=== PATIENT | female | born 1975 | race Caucasian/White ===

== ENCOUNTER 2017-02-28 10:41 | Emergency (ER) | payer OTHER ==
[2017-02-28 10:51] VITALS: BP 132/89; O2SAT 98
[2017-02-28] MEDS ORDERED: Adacel Vial IM ONE ×2 (11:14→11:22)
--- NOTE | 2017-02-28 11:20 | ERPHSYRPT ---
- History of Present Illness Time Seen by Provider: 02/28/17 10:56 Source: patient, family Patient Subjective Stated Complaint: lt face abscess for 2 days Triage Nursing Assessment: had small abscess on lt eyebrow drain 2 days ago but has had lt forehead abscess not draining for 2 days casuing lt facial swelling and pain. denies fever. redness and scabbed area noted to t forehead Physician History: CC: scab on forehead hx: 41 y/o patient of Dr Hugo has third skin infection. She has scabbed red area on left forehead. She tried to pop it but no drng. No fever or chills. Some swelling. This is third infx. Not better with prid at home. Timing/Duration: day(s) (2) Severity: mild Allergies/Adverse Reactions: No Known Drug Allergies Allergy (Unverified 02/28/17 10:51) Home Medications: Tramadol HCl 50 mg [Ultram 50 mg] 50 mg PO QIDPRN PRN 02/28/17 [History] Hx Tetanus, Diphtheria Vaccination/Date Given: Yes Hx Influenza Vaccination/Date Given: No Hx Pneumococcal Vaccination/Date Given: No Immunizations Up to Date: Yes - Review of Systems Constitutional: No Fever, No Chills Eyes: No Vision Changes, No Double Vision Ears, Nose, & Throat: No Nose Congestion Abdominal/Gastrointestinal: No Nausea, No Vomiting Skin: Skin Lesions Neurological: No Focal Weakness, No Headache, No Parasthesia - Past Medical History Pertinent Past Medical History: Yes Musculoskeletal History: Arthritis - Past Surgical History Past Surgical History: Yes Gastrointestinal: Hernia Repair Female Surgical History: Tubal Ligation Other Surgical History: cyst foot - Social History Smoking Status: Current every day smoker Exposure to second hand smoke: No Drug Use: marijuana Patient Lives Alone: No - Female History Hx Last Menstrual Period: current - Nursing Vital Signs Nursing Vital Signs: Initial Vital Signs Temperature 98.0 F 02/28/17 10:48 Pulse Rate 72 02/28/17 10:48 Respiratory Rate 18 02/28/17 10:48 Blood Pressure 132/89 02/28/17 10:48 O2 Sat by Pulse Oximetry 98 02/28/17 10:48 Pain Scale Pain Intensity 6 - Physical Exam General Appearance: alert Eye Exam: PERRL/EOMI Ears, Nose, Throat Exam: moist mucous membranes Neck Exam: normal inspection, non-tender, supple Respiratory Exam: lungs clear Cardiovascular Exam: regular rate/rhythm Neurologic Exam: alert, oriented x 3, cooperative, nml station & gait, sensation nml, No motor deficits Skin Exam: warm, dry, other (scab left forehead with some redness, no fluctuance. No facial cellulitis. EOMI.) SpO2: 98 Oxygen Delivery: Room Air - Course Nursing assessment & vital signs reviewed: Yes - Progress Progress Note: 02/28/17 11:21 Likely MRSA. Instr given. No abscess to drain at present. Counseled pt/family regarding: diagnosis, need for follow-up - Departure Time of Disposition: 11:22 Departure Disposition: Home Clinical Impression: left forehead abscess Condition: Stable Critical Care Time: No Referrals: CARLOS HUGO [Primary Care Provider] - Instructions: Methicillin-Resistant Staph Infection (MRSA), Cellulitis -- Adult Additional Instructions: Warm compress three times a day. RX keflex. Rx bactrim. Rx bactroban ointment. Return for double vision, fever, worsening. Follow up with Dr Hugo Thursday if not better. Prescriptions: Cephalexin Mh 500 mg [Keflex 500 mg] 1 cap PO QID #40 capsule Mupirocin [Bactroban OINTMENT] 22 gm TP BID #1 tube Smz/Tmp Ds Tablet [Bactrim Ds Tablet] 1 udtab PO BID #20 tablet
[2017-02-28 11:49] VITALS: PULSE 74
== END 2017-02-28 11:50 | disposition home or self-care (01) ==
LOC: ED 10:41
DX: L02.01 Cutaneous abscess of face (principal)
CPT/HCPCS: 90471; 90715; 99283

== ENCOUNTER 2022-08-15 20:32 | Emergency (ER) | payer OTHER ==
--- NOTE | 2022-08-15 20:40 | ERPHSYRPT ---
- History of Present Illness Time Seen by Provider: 08/15/22 20:40 Source: patient Exam Limitations: no limitations Physician History: 47-year-old female presents to the ED with new onset chest tightness, jaw tightness, palpitations, dizziness and shortness of breath for the last 2-1/2 hours. She reports that this started after smoking new marijuana. On evaluation patient reports that she is starting to feel much better. She still has some left-sided chest tightness that radiates to her left shoulder and jaw. She denies any cough or wheeze. Patient has not been recently sick or been around anyone's been sick. She does have a history of asthma for which she uses an albuterol inhaler as needed. Patient reports last time she had use inhaler was approximately 4 days ago. She has a past medical history of fibromyalgia and anxiety and only takes [place], pravastatin and her albuterol inhaler. Denies any allergies. She smokes cigarettes daily and marijuana occasionally, but denies alcohol or illicit drug usage. Patient denies any history of cardiac issues in the past. Timing/Duration: hour(s) (2.05) Activities at Onset: rest, other (after smoking new marijuana) Severity of Dyspnea-Max: severe Severity of Dyspnea-Current: mild Possible Cause: smoke exposure Associated Symptoms: anxiety, chest pain/discomfort, lightheadedness, dizziness, heaviness, heart racing, tightness, No edema, No fever, No wheezing, No productive cough Allergies/Adverse Reactions: No Known Drug Allergies Allergy (Verified 08/15/22 20:34) Home Medications: Albuterol Sulfate [Proair Respiclick] 2 puffs IH DAILY PRN 08/15/22 [History] Hydrocodone/Acetaminophen [Hydrocodone-Acetamin 7.5-325] 1 tab PO TID 08/15/22 [History] Pravastatin Sodium 40 mg PO DAILY 08/15/22 [History] Hx Tetanus, Diphtheria Vaccination/Date Given: Yes Hx Influenza Vaccination/Date Given: No Hx Pneumococcal Vaccination/Date Given: No - Review of Systems Constitutional: No Symptoms Eyes: No Symptoms Ears, Nose, & Throat: No Symptoms Respiratory: Dyspnea, No Cough, No Wheezing Cardiac: Chest Pain, Palpitations, No Edema, No Syncope Abdominal/Gastrointestinal: Abdominal Pain (epigastric), No Nausea, No Vomiting, No Diarrhea, No Hematemesis, No Dysphagia Genitourinary Symptoms: No Symptoms Musculoskeletal: No Symptoms Skin: No Symptoms Neurological: Dizziness Psychological: Drug Abuse, Anxiety Endocrine: No Symptoms Hematologic/Lymphatic: No Symptoms Immunological/Allergic: No Symptoms All Other Systems: Reviewed and Negative - Past Medical History Pertinent Past Medical History: Yes Musculoskeletal History: Arthritis - Past Surgical History Past Surgical History: Yes Gastrointestinal: Hernia Repair Female Surgical History: Tubal Ligation Other Surgical History: cyst foot - Social History Smoking Status: Current every day smoker Exposure to second hand smoke: No Drug Use: marijuana Patient Lives Alone: No - Nursing Vital Signs Nursing Vital Signs: Initial Vital Signs Temperature 98.5 F 08/15/22 20:33 Pulse Rate 81 08/15/22 20:33 Respiratory Rate 19 08/15/22 20:33 Blood Pressure 132/82 08/15/22 20:33 O2 Sat by Pulse Oximetry 100 08/15/22 20:33 Pain Scale Pain Intensity 3 - Physical Exam General Appearance: no apparent distress, anxiety, thin Eye Exam: eyes nml inspection Ears, Nose, Throat Exam: hearing grossly normal Neck Exam: normal inspection Respiratory Exam: normal breath sounds, lungs clear, No chest tenderness, No respiratory distress, No crackles/rales, No rhonchi, No wheezing Cardiovascular/Chest Exam: normal heart sounds, regular rate/rhythm, No murmur, No edema Abdominal/Gastrointestinal Exam: soft, normal bowel sounds, No tenderness (epigastric), No distention, No guarding, No rebound Extremity Exam: no calf tenderness, No swelling Neurologic Exam: alert, oriented x 3, cooperative Skin Exam: normal color, warm, dry SpO2 Interpretation: normal O2 Delivery: Room Air Ordered Tests: Active Orders 24 hr Category Date Time Status Desilverizer STAT Care 08/15/22 20:41 Active EKG-ER Only STAT Care 08/15/22 20:40 Active Pulse Oximetry (ED) STAT Care 08/15/22 20:40 Active CHEST 2 VIEWS (PA AND LAT) Stat Exams 08/15/22 20:41 Taken CBC W DIFF Stat Lab 08/15/22 20:45 Completed CMP Stat Lab 08/15/22 20:45 Completed HCG QUALITATIVE,SERUM Stat Lab 08/15/22 20:45 Completed MAGNESIUM Stat Lab 08/15/22 20:45 Completed NT PRO BNP Stat Lab 08/15/22 20:45 Completed TROPONIN Q4H Lab 08/15/22 20:45 Completed TROPONIN Q4H Lab 08/16/22 00:45 Ordered TROPONIN Q4H Lab 08/16/22 04:45 Ordered Medication Summary Discontinued Medications Generic Name Dose Route Start Last Admin Trade Name Layo PRN Reason Stop Dose Admin Hydroxyzine HCl 25 mg 08/15/22 20:47 08/15/22 20:56 Hydroxyzine Hcl 25 Mg Tablet PO 08/15/22 20:48 25 mg STAT ONE Administration Hydroxyzine HCl Confirm 08/15/22 20:55 Hydroxyzine Hcl 25 Mg Tablet Administered 08/15/22 20:56 Dose 25 mg .ROUTE [employer]MED ONE Lab/Rad Data: Laboratory Result Diagrams 08/15/22 20:45 08/15/22 20:45 Laboratory Results 08/15/22 08/15/22 08/15/22 Range/Units 20:45 20:45 20:45 WBC (4.0-10.5) x10^3/uL RBC (4.1-5.4) x10^6/uL Hgb (12.0-16.0) g/dL Hct (35-47) % MCV (78-100) fL MCH (26-32) pg MCHC (32-36) g/dL RDW (11.5-14.0) % Plt Count (150-450) x10^3/uL MPV (7.5-11.0) fL Gran % (36.0-66.0) % Immature Gran % (Auto) (0.00-0.4) % Nucleat RBC Rel Count (0.00-0.1) % Eos # (Auto) (0-0.5) x10^3/uL Immature Gran # (Auto) (0.00-0.03) x10^3u/L Absolute Lymphs (auto) (1.0-4.6) x10^3/uL Absolute Monos (auto) (0.0-1.3) x10^3/uL Absolute Nucleated RBC (0.00-0.01) x10^3u/L Lymphocytes % (24.0-44.0) % Monocytes % (0.0-12.0) % Eosinophils % (0.00-5.0) % Basophils % (0.0-0.4) % Absolute Granulocytes (1.4-6.9) x10^3/uL Basophils # (0-0.4) x10^3/uL Sodium 133 L (137-145) mmol/L Potassium 3.5 (3.5-5.1) mmol/L Chloride 101 (98-107) mmol/L Carbon Dioxide 26 (22-30) mmol/L Anion Gap 9.3 (5-15) MEQ/L BUN 7 (7-17) mg/dL Creatinine 0.63 (0.52-1.04) mg/dL Estimated GFR > 60.0 ML/MIN Glucose 156 H (74-106) mg/dL Calcium 9.2 (8.4-10.2) mg/dL Magnesium 1.7 (1.6-2.3) mg/dL Total Bilirubin 0.50 (0.2-1.3) mg/dL AST 27 (14-36) U/L ALT 17 (0-35) U/L Alkaline Phosphatase 72 (38-126) U/L Troponin I < 0.012 (0.000-0.034) ng/mL NT-Pro-B Natriuret Pep 56.7 (0-450) pg/mL Serum Total Protein 7.4 (6.3-8.2) g/dL Albumin 4.2 (3.5-5.0) g/dL Serum , Qual NEGATIVE (Negative) 08/15/22 Range/Units 20:45 WBC 5.6 (4.0-10.5) x10^3/uL RBC 4.19 (4.1-5.4) x10^6/uL Hgb 12.2 (12.0-16.0) g/dL Hct 37.9 (35-47) % MCV 90.5 (78-100) fL MCH 29.1 (26-32) pg MCHC 32.2 (32-36) g/dL RDW 13.2 (11.5-14.0) % Plt Count 230 (150-450) x10^3/uL MPV 11.1 H (7.5-11.0) fL Gran % 59.9 (36.0-66.0) % Immature Gran % (Auto) 0.2 (0.00-0.4) % Nucleat RBC Rel Count 0.0 (0.00-0.1) % Eos # (Auto) 0.10 (0-0.5) x10^3/uL Immature Gran # (Auto) 0.01 (0.00-0.03) x10^3u/L Absolute Lymphs (auto) 1.70 (1.0-4.6) x10^3/uL Absolute Monos (auto) 0.37 (0.0-1.3) x10^3/uL Absolute Nucleated RBC 0.00 (0.00-0.01) x10^3u/L Lymphocytes % 30.4 (24.0-44.0) % Monocytes % 6.6 (0.0-12.0) % Eosinophils % 1.8 (0.00-5.0) % Basophils % 1.1 (0.0-0.4) % Absolute Granulocytes 3.35 (1.4-6.9) x10^3/uL Basophils # 0.06 (0-0.4) x10^3/uL Sodium (137-145) mmol/L Potassium (3.5-5.1) mmol/L Chloride (98-107) mmol/L Carbon Dioxide (22-30) mmol/L Anion Gap (5-15) MEQ/L BUN (7-17) mg/dL Creatinine (0.52-1.04) mg/dL Estimated GFR ML/MIN Glucose (74-106) mg/dL Calcium (8.4-10.2) mg/dL Magnesium (1.6-2.3) mg/dL Total Bilirubin (0.2-1.3) mg/dL AST (14-36) U/L ALT (0-35) U/L Alkaline Phosphatase (38-126) U/L Troponin I (0.000-0.034) ng/mL NT-Pro-B Natriuret Pep (0-450) pg/mL Serum Total Protein (6.3-8.2) g/dL Albumin (3.5-5.0) g/dL Serum , Qual (Negative) - Progress Progress: improved Air Movement: good Progress Note: Patient feeling much better after Hydroxyzine. She feels this was related to anxiety. Labs and imaging negative. Patient wants to go home. Advised to f/u w/ PCP. 01/13/23 23:10 Blood Culture(s) Obtained: No Antibiotics given: No Counseled pt/family regarding: lab results, diagnosis, need for follow-up, rad results - Departure Departure Disposition: Home Clinical Impression: Anxiety, Adverse effect of cannabis, initial encounter Condition: Good Critical Care Time: No Critical Care Time(excluding separately billable procedures): Critical 30-74 mins Referrals: MARCIO DORMAN [Primary Care Provider] - Follow up/PCP as directed Instructions: Generalized Anxiety Disorder Prescriptions: hydrOXYzine pamoate [Vistaril] 25 mg PO TID PRN 5 Days #15 cap PRN Reason: Anxiety
[2022-08-15] MEDS ORDERED: ATARAX 25 MG PO ONE (20:47)
[2022-08-15 20:54] LABS: Absolute Neutrophil Ct (ANC) 3.35 x10^3/uL (1.4-6.9); Basophil (Absolute #) 0.06 x10^3/uL (0-0.4); Eosinophil % 1.8 % (0.00-5.0); Hematocrit 37.9 % (35-47); Hemoglobin 12.2 g/dL (12.0-16.0); Lymphocytes % 30.4 % (24.0-44.0); Mean Cell Volume 90.5 fL (78-100); Mean Corpuscular Hemoglobin 29.1 pg (26-32); Mean Corpuscular Hgb Concent. 32.2 g/dL (32-36); Mean Platelet Volume 11.1 fL (7.5-11.0); Monocyte (Absolute #) 0.37 x10^3/uL (0.0-1.3); Monocytes % 6.6 % (0.0-12.0); Neutrophil % 59.9 % (36.0-66.0); Platelet Count 230 x10^3/uL (150-450); Red Blood Count 4.19 x10^6/uL (4.1-5.4); Red Cell Distribution Width 13.2 % (11.5-14.0); White Blood Count 5.6 x10^3/uL (4.0-10.5)
[2022-08-15] MEDS ORDERED: ATARAX 25 MG ONE (20:55)
[2022-08-15 21:11] LABS: ALBUMIN 4.2 g/dL (3.5-5.0); ALKALINE PHOSPHATASE 72 U/L (38-126); ANION GAP 9.3 MEQ/L (5-15); BLOOD UREA NITROGEN 7 mg/dL (7-17); CHLORIDE 101 mmol/L (98-107); Calcium 9.2 mg/dL (8.4-10.2); Carbon Dioxide 26 mmol/L (22-30); Creatinine 1 0.63 mg/dL (0.52-1.04); EST GLOMERULAR FILTRATION RATE > 60.0 ML/MIN; Glucose 156 mg/dL (74-106); MAGNESIUM 1.7 mg/dL (1.6-2.3); NT PRO BNP 56.7 pg/mL (0-450); Potassium 3.5 mmol/L (3.5-5.1); SGOT/AST 27 U/L (14-36); SGPT/ALT 17 U/L (0-35); SODIUM 133 mmol/L (137-145); Total Protein 7.4 g/dL (6.3-8.2)
[2022-08-15 23:29] VITALS: BP 124/66; PULSE 71; O2SAT 97
--- NOTE | 2022-08-16 07:24 | XRAY ---
Indication: Chest pain and short of breath. Comparison: None Portable chest inflated and clear with incidental right lung calcified granulomas. Heart not enlarged. Bony thorax intact with moderate dextroscoliosis.
== END 2022-08-15 23:28 | disposition home or self-care (01) ==
LOC: ED 20:32
DX: F41.9 Anxiety disorder, unspecified (principal); T40.711A Poisoning by cannabis, accidental (unintentional), initial encounter; F12.980 Cannabis use, unspecified with anxiety disorder; R07.9 Chest pain, unspecified; R00.2 Palpitations; R42 Dizziness and giddiness; R06.02 Shortness of breath; Z79.891 Long term (current) use of opiate analgesic; Z79.899 Other long term (current) drug therapy; Z72.0 Tobacco use
CPT/HCPCS: 36415; 71046; 80053; 83735; 83880; 84484; 84703; 85025; 93005; 93041; 94760; 99284; 99291; A9270-GY